=== PATIENT | female | born 1950 | race Caucasian/White ===

== ENCOUNTER 2017-02-14 11:58 | Day surgery (SDC) | payer MEDICARE, OTHER ==
[~2017-02-14] VITALS: Ht 160 cm; Wt 78.0 kg
[~2017-02-14 11:58] MED LIST: ANASTROZOLE1 MG PO; COZAAR50 MG PO; PERCOCET 7.5-31 EACH PO
--- NOTE | 2017-02-14 14:40 | NUR ---
02/14/17 1440 Sita Patterson 1434 PATIENT ARRIVES TO PACU AWAKE, BUT DROWSY, ALERT AND ORIENTED X3. DENIES PAIN OR NAUSEA.
--- NOTE | 2017-03-30 10:25 | OR ---
[facility] [address], [place] [address] Signed DATE OF PROCEDURE: 02/14/17 PREOPERATIVE DIAGNOSIS Episodic rectal bleeding and history of chronic anal fissure. POSTOPERATIVE DIAGNOSIS Diverticulosis of sigmoid. Flat polyp of rectum versus artifact (biopsied). PROCEDURE Total colonoscopy to cecum with cold morcellation polypectomy. ANESTHESIA: Intravenous sedation, Fentanyl 150 mcg, Versed 8 mg. PREOPERATIVE ANTIBIOTIC: Cefoxitin 2 g. INDICATION This 66-year-old white woman is a patient of Dr. Nish Chisholm She is known to have had a chronic anal fissure in the past as well as episodic rectal bleeding. She is admitted to undergo colonoscopy to better characterize her problem. She understands the risks of bleeding, infection, and perforation related to colonoscopy and wished to proceed. FINDINGS There is no sign of active fissure. There were some internal hemorrhoidal changes and no strict polyp but a flat mucosal area that may or may not be of significance. On that basis, biopsies obtained. There were diverticular changes of sigmoid as well. DESCRIPTION OF PROCEDURE The patient was brought to the endoscopy suite and placed in lateral decubitus position. Given intravenous sedation to the point of slurred speech and nystagmus with full cardiopulmonary monitoring. She was given preoperative antibiotic cefoxitin based on joint replacement history. Digital rectal examination was found to be normal. Close inspection showed no sign of anal fissure. An Olympus video colonoscope was passed in the rectum and manipulated throughout the colon, ultimately intubating the cecum itself. The sigmoid was rather challenging the pass as there were numerous diverticula but it was accomplished safely. Once the cecum was obtained irrigation was undertaken and the scope was carefully withdrawn. Examination throughout showed no sign of abnormality until the sigmoid where diverticula were once again encountered. Retroflexed view in the rectum was undertaken showing a flat lesion which is probably of no real significance, did not have characteristics of a flat polyp per se. Narrow band imaging provided no further clue to its origin. Biopsies were obtained. Scope was then removed and patient was taken to recovery room in good Electronically Signed By: TG BROWN MD 03/30/17 1025 PATIENT NAME: JOSE ANTONIO WOLF OPERATIVE REPORT DATE OF : 48 PHYSICIAN: TG BROWN MD REPORT #: [id number] REPORT IS CONFIDENTIAL AND NOT TO BE RELEASED WITHOUT AUTHORIZATION [address] [address] Signed condition. CONCLUDING DIAGNOSES Questionable flat polyp or lesion of the rectum versus artifact (biopsied). Diverticulosis. MD ALEX Bhagat/Stacia /[id number] cc: Nish Chisholm DO Electronically Signed By: TG BROWN MD 03/30/17 1025 PATIENT NAME: JOSE ANTONIO WOLF OPERATIVE REPORT DATE OF : 48 PHYSICIAN: TG BROWN MD REPORT #: [id number] REPORT IS CONFIDENTIAL AND NOT TO BE RELEASED WITHOUT AUTHORIZATION
[2017-08-07] MEDS ORDERED: XARELTO20 MG PO (13:11)
[2017-08-07] MEDS ORDERED: AMLODIPINE BESYL5 MG PO (13:11)
[2017-08-07] MEDS ORDERED: LOSARTAN POTAS100 MG PO (13:11)
== END 2017-02-14 15:14 | disposition home or self-care (01) ==
LOC: OPS 11:58 → DS 11:58 → OPS 13:00 → DS 13:00 → OPS 15:14
PROVIDERS: Surgery
PROC: 0DJD8ZZ Inspection of Lower Intestinal Tract, Via Natural or Artificial Opening Endoscopic (ICD-10-PCS; principal; 2017-02-14 13:00)
DX: K57.30 Diverticulosis of large intestine without perforation or abscess without bleeding (principal); E78.00 Pure hypercholesterolemia, unspecified; M19.90 Unspecified osteoarthritis, unspecified site; I10 Essential (primary) hypertension; F32.9 Major depressive disorder, single episode, unspecified; Z85.3 Personal history of malignant neoplasm of breast; Z88.5 Allergy status to narcotic agent; Z91.02 Food additives allergy status; Z98.41 Cataract extraction status, right eye; Z98.42 Cataract extraction status, left eye; Z98.51 Tubal ligation status; Z90.49 Acquired absence of other specified parts of digestive tract; Z98.84 Bariatric surgery status; Z96.641 Presence of right artificial hip joint; Z90.89 Acquired absence of other organs; Z98.890 Other specified postprocedural states
CPT/HCPCS: 88305; 99152; 99153; J0694; J2250; J3010; J7120

== ENCOUNTER 2018-12-26 12:59 | Emergency (ER) | payer MEDICARE, OTHER ==
[~2018-12-26] VITALS: Ht 160 cm; Wt 79.9 kg
[~2018-12-26 12:59] MED LIST changes: +AMLODIPINE BESYL5 MG PO; +CALCIUM 600+D31 EACH PO; +LOSARTAN POTAS100 MG PO; +MAGNESIUM500 MG PO; +VITAMIN B122500 MC1 PO; +XARELTO20 MG PO
== END 2018-12-26 19:30 | disposition home or self-care (01) ==
LOC: ED 12:59
DX: R10.32 Left lower quadrant pain (principal); I10 Essential (primary) hypertension; I48.91 Unspecified atrial fibrillation; Z91.09 Other allergy status, other than to drugs and biological substances; Z88.5 Allergy status to narcotic agent; Z79.899 Other long term (current) drug therapy
CPT/HCPCS: 74177; 80053; 81001; 83690; 85025; 99284-25; J7030; Q9967